=== PATIENT | female | born 1995 | race Caucasian/White ===

== ENCOUNTER 2024-04-16 14:57 | Emergency (ER) | payer BC ==
[2024-04-16 15:46] LABS: BILIRUBIN,URINE NEGATIVE (NEGATIVE); GLUCOSE,URINE NORMAL (NORMAL); KETONES,URINE NEGATIVE (NEGATIVE); LEUKOCYTE ESTERASE,URINE NEGATIVE (NEGATIVE); NITRITE,URINE NEGATIVE (NEGATIVE); OCCULT BLOOD,URINE NEGATIVE (NEGATIVE); PROTEIN,URINE NEGATIVE (NEGATIVE); UROBILINOGEN,URINE NORMAL (NEGATIVE)
[2024-04-16 15:49] LABS: BASOPHILS PERCENT AUTO 0.2 % (0.2-1.5); EOSINOPHILS PERCENT AUTO 0.5 % (0.6-8.1); HEMATOCRIT 32.8 % (34.2-48.2); HEMOGLOBIN 11.3 g/dL (11.4-15.5); LYMPHOCYTES ABSOLUTE AUTO 1.4 x10-3/uL (1.0-4.4); LYMPHOCYTES PERCENT AUTO 13.5 % (18.4-52.1); MEAN CORPUSCULAR HEMOGLOBIN 30.1 pg (23.9-33.9); MEAN CORPUSCULAR HGB CONC 34.4 g/dL (31.9-34.8); MEAN CORPUSCULAR VOLUME 87.5 fL (76.7-100.5); MEAN PLATELET VOLUME 7.4 fL (7.1-12.4); MONOCYTES ABSOLUTE AUTO 0.8 x10-3/uL (0.3-1.0); NEUTROPHILS PERCENT AUTO 77.8 % (30.8-76.2); PLATELET COUNT,PLT 302 x10(3)uL (151-488); RED BLOOD CELL COUNT 3.75 x10(6)uL (3.60-5.20); WHITE BLOOD CELL COUNT,WBC 10.3 x10-3/uL (3.0-10.3)
[2024-04-16 15:50] LABS: APPEARANCE,URINE CLEAR (CLEAR); BACTERIA,URINE OCCASIONAL (NS); COLOR,URINE YELLOW (YELLOW); RBC,URINE 0-5 (0-5); SQUAMOUS EPITHELIAL CELLS,UR FEW (NS,R,O); WBC,URINE 0-5 (0-5)
[2024-04-16 15:55] LABS: CALCIUM 8.7 mg/dL (8.6-10.2); CARBON DIOXIDE,CO2 23 mmol/L (21-32); CHLORIDE,CL 103 mmol/L (100-110); CREATININE 0.6 mg/dL (0.55-1.02); ESTIMATED GFR 124 mL/min (>60); GLUCOSE RANDOM 91 mg/dL (80-116); POTASSIUM,K 3.9 mmol/L (3.5-5.3); SODIUM,NA 138 mmol/L (135-145)
[2024-04-16 16:01] LABS: A/G RATIO 0.6; ALANINE AMINOTRANSFERASE,ALT 19 U/L (12-36); ALBUMIN 2.5 g/dL (3.5-5.2); ALKALINE PHOSPHATASE 116 IU/L (56-112); ASPARTATE AMNIOTRANSFERASE,AST 13 IU/L (5-25); BILIRUBIN TOTAL 0.2 mg/dL (0.1-1.3); PROTEIN TOTAL,TP 6.4 g/dL (6.0-8.0)
[2024-04-16 16:02] LABS: BLOOD UREA NITROGEN,BUN < 5 mg/dL (7-18); BUN/CREATININE RATIO 8.3 (9-20)
== END 2024-04-16 17:28 | disposition home or self-care (01) ==
LOC: FB.ED 14:57
DX: O99.891 Other specified diseases and conditions complicating pregnancy (principal); R51.9 Headache, unspecified; H53.9 Unspecified visual disturbance; Z90.89 Acquired absence of other organs; Z3A.32 32 weeks gestation of pregnancy
CPT/HCPCS: 36415; 80053; 81001; 85025; 99284